=== PATIENT | female | born 1955 | race Caucasian/White ===

== ENCOUNTER → 2017-01-18 | Outpatient (CLI) | payer OTHER ==
[2014-05-13 14:30] VITALS: BP 149/71
[~2017-01-18] MED LIST: ASPI-630 PO; FERR325T58 PO; LEVO50TA5 PO; LOSA1TAB16 PO; OMEG-57 PO; OMEP20CA5 PO; SERT50TA8 PO
--- NOTE | 2017-01-18 16:01 | RAD ---
Pelvis with left hip, 3 views, 01/18/2017: History: Hip pain, fall, thigh mass The bony structures are demineralized. No fracture or dislocation is identified. There is mild marginal spurring at both hip joints. There is degenerative change in the lower lumbar spine. IMPRESSION: No acute bony abnormality is detected.
== END | disposition home or self-care (01) ==
LOC: DXRADRC 15:30
PROVIDERS: ATTEND Nurse Practitioner Family
DX: M25.552 Pain in left hip (principal); M79.605 Pain in left leg; M47.896 Other spondylosis, lumbar region; W19.XXXA Unspecified fall, initial encounter; Y93.89 Activity, other specified; Y92.89 Other specified places as the place of occurrence of the external cause; Y99.8 Other external cause status
CPT/HCPCS: 73501

== ENCOUNTER → 2017-01-26 | Outpatient (CLI) | payer OTHER ==
[2014-05-13 14:30] VITALS: BP 149/71
--- NOTE | 2017-01-26 11:30 | RAD ---
Indication fall 2 weeks ago. Probable hematoma/mass. Targeted grayscale ultrasound images were obtained. The examination was targeted to the left lateral thigh. There is a complex mass in the area examined which is nonvascular and measures approximately 6 x 8.2 x 4 cm. In the proper clinical setting this would be compatible with a hematoma. IMPRESSION: Mass, in the proper clinical setting compatible with a hematoma, lateral left thigh.
== END | disposition home or self-care (01) ==
LOC: US 08:29
PROVIDERS: ATTEND Nurse Practitioner Family
DX: T14.8 Other injury of unspecified body region (principal); W19.XXXD Unspecified fall, subsequent encounter
CPT/HCPCS: 76881

== ENCOUNTER → 2017-08-17 | Outpatient (CLI) | payer OTHER ==
[2014-05-13 14:30] VITALS: BP 149/71
[~2017-08-17] MED LIST changes: -LOSA1TAB16 PO; +LOSA1TAB19 PO
--- NOTE | 2017-08-17 12:05 | RAD ---
DATE: 08/17/2017 EXAM: MAMMO PAZ SCREENING BILATERAL HISTORY: Routine screening COMPARISON: 11/19/2009 This study was interpreted with the benefit of Computerized Aided Detection (CAD). The breast parenchyma shows scattered fibroglandular densities. Breast parenchyma level B. FINDINGS: 2-D and 3-D tomosynthesis imaging was performed in CC and MLO projections. A smooth benign-appearing nodule in the upper inner quadrant of the right breast appears to be unchanged. There is no evidence of architectural distortion, spiculated nodule or suspicious microcalcifications. IMPRESSION: There is no mammographic evidence of malignancy in either breast. BI-RADS CATEGORY: 2 BENIGN FINDING(S) RECOMMENDED FOLLOW-UP: 12M 12 MONTH FOLLOW-UP PQRS compliance statement: Patient information was entered into a reminder system with a target due date for the next mammogram. Mammography is a sensitive method for finding small breast cancers, but it does not detect them all and is not a substitute for careful clinical examination. A negative mammogram does not negate a clinically suspicious finding and should not result in delay in biopsying a clinically suspicious abnormality. "Our facility is accredited by the [employer] Mammography Program."
== END | disposition home or self-care (01) ==
LOC: MAMMO 08:07
PROVIDERS: ATTEND Nurse Practitioner Family
DX: Z12.31 Encounter for screening mammogram for malignant neoplasm of breast (principal)
CPT/HCPCS: 77063; 77067

== ENCOUNTER → 2017-11-18 | Outpatient (CLI) | payer OTHER ==
[2014-05-13 14:30] VITALS: BP 149/71
--- NOTE | 2017-11-18 09:42 | RAD ---
Left knee, 3 views, 11/18/2017: HISTORY: Knee pain, previous fracture A surgical plate and screws is present related to the proximal tibia apparently transfixing an old healed fracture. There is extensive marginal spurring at the knee joint with moderate articular irregularity. There is also extensive spurring at the patellofemoral articulation. Periarticular and suprapatellar calcifications are compatible with loose bodies. The suprapatellar loose body measures 2.5 cm. No acute fracture or dislocation is identified. IMPRESSION: 1. Old, healed, internally fixed proximal tibial fracture. 2. Severe hypertrophic degenerative change with loose bodies. 3. No acute bony abnormality is detected. Electronically signed by: Ronald Max MD (11/18/2017 9:39 AM) [facility]
== END | disposition home or self-care (01) ==
LOC: PMG 09:09
PROVIDERS: ATTEND Physician Assistant Medical
DX: M23.42 Loose body in knee, left knee (principal)
CPT/HCPCS: 73562

== ENCOUNTER → 2019-10-26 | Outpatient (CLI) | payer OTHER ==
[2014-05-13 14:30] VITALS: BP 149/71
--- NOTE | 2019-10-26 16:31 | RAD ---
EXAM: Lumbar spine, 5 views. HISTORY: Pain. COMPARISON: None. FINDINGS: 5 views of the lumbar spine are obtained. There is 6 nonrib-bearing vertebral segments. For the purposes of this dictation, the last segment is considered L5. There is degenerative endplate remodeling and spurring at all levels. There is disc space narrowing predominantly at the lumbosacral junction. There are few endplate Schmorl's nodes. There is facet arthropathy predominantly at the lumbosacral junction. IMPRESSION: 1. Multilevel degenerative change, primarily at the lumbosacral junction. 2. No acute osseous finding. Electronically signed by: Dimple Iraheta MD (10/26/2019 4:29 PM) [facility]
== END ==
LOC: DXRAD 15:48
PROVIDERS: ATTEND Physician Assistant Medical
DX: M47.817 Spondylosis without myelopathy or radiculopathy, lumbosacral region (principal); M48.07 Spinal stenosis, lumbosacral region; M51.47 Schmorl's nodes, lumbosacral region
CPT/HCPCS: 72110